=== PATIENT | female | born 1945 | race Caucasian/White ===

== ENCOUNTER 2020-09-20 08:49 | Emergency (ER) | payer OTHER ==
[2020-09-20 09:38] LABS: HEMOGLOBIN 14.5 gm/dl (12.3-15.3); RED BLOOD COUNT 4.39 M/UL (4.00-5.10); WHITE BLOOD COUNT 12.2 K/UL (4.5-11.0)
[2020-09-20] MEDS ORDERED: ZOFRAN4 MG PO (13:23)
[2020-09-20] MEDS ORDERED: CIPRO500 MG PO (13:23)
[2020-09-20] MEDS ORDERED: FLAGYL500 MG PO (13:23)
== END 2020-09-20 13:48 | disposition home or self-care (01) ==
LOC: ER1 08:49
PROVIDERS: Physician Assistant
DX: R10.11 Right upper quadrant pain (principal); R19.7 Diarrhea, unspecified; R11.0 Nausea; R18.8 Other ascites; Z91.010 Allergy to peanuts
CPT/HCPCS: 80053; 82150; 83690; 85025; 99284; Q9967